=== PATIENT | male | born 2000 | race Two or more races ===

== ENCOUNTER 2021-03-19 13:08 | Emergency (ER) | payer MEDICAID ==
[~2021-03-19] VITALS: Ht 177.8 cm; Wt 117.9 kg
[2021-03-19 20:42] VITALS: BP 123/74
== END 2021-03-19 20:56 | disposition home or self-care (01) ==
LOC: ER 13:08
DX: S30.0XXA Contusion of lower back and pelvis, initial encounter (principal); M62.838 Other muscle spasm; E66.9 Obesity, unspecified; Z68.37 Body mass index [BMI] 37.0-37.9, adult; V43.52XA Car driver injured in collision with other type car in traffic accident, initial encounter; Y93.89 Activity, other specified; Y92.89 Other specified places as the place of occurrence of the external cause; Y99.8 Other external cause status
CPT/HCPCS: 72220

== ENCOUNTER 2022-12-03 22:44 | Emergency (ER) | payer BC, MEDICAID ==
[~2022-12-03] VITALS: Ht 177.8 cm; Wt 117.4 kg
[2022-12-03 23:11] LABS: Basophils # (auto) 0.1 10 ^3/uL (0-0.2); Basophils % (auto) 0.8 % (0.0-2.0); Eosinophils # (auto) 0.1 10 ^3/uL (0-0.8); Eosinophils % (auto) 1.3 % (0.0-7.0); Hematocrit 45.4 % (41.0-53.0); Hemoglobin 15.4 g/dL (13.5-17.5); Lymphocytes # (auto) 2.4 10 ^3/uL (0.4-5.4); Lymphocytes % (auto) 26.3 % (10.0-50.0); Mean Corpuscular Hemoglobin 29.4 pg (28.0-32.0); Mean Corpuscular Volume 86.6 fL (80.0-100.0); Monocytes # (auto) 0.6 10 ^3/uL (0-1.3); Neutrophils # (auto) 5.8 10 ^3/uL (1.6-8.6); Neutrophils % (auto) 64.6 % (37.0-80.0); Nucleated Red Blood Cells % 0.2 %; Red Blood Cells 5.25 10^6/uL (4.5-5.90); Red Cell Distribution Width 13.9 % (11.8-14.3)
[2022-12-03 23:27] LABS: Albumin 3.8 g/dL (3.4-5.0); Calcium 8.2 mg/dL (8.5-10.1); Magnesium 2.7 mg/dL (1.6-2.6)
[2022-12-03 23:30] LABS: BUN/Creatinine Ratio 11.2 (10.0-20.0); Bilirubin, Total 0.3 mg/dL (0.2-1.0); Total Protein 7.4 g/dL (6.4-8.2)
[2022-12-04 00:41] VITALS: BP 119/60; PULSE 78; RESP 20; TEMP 98.5; O2SAT 97
== END 2022-12-04 00:47 | disposition home or self-care (01) ==
LOC: ER 22:44
DX: R07.89 Other chest pain (principal)
CPT/HCPCS: 36415; 71045; 80053; 83735; 84484; 85025; 93005